=== PATIENT | female | born 1940 | race Caucasian/White ===

== ENCOUNTER 2021-02-04 12:24 | Emergency (ER) | payer OTHER ==
[~2021-02-04] VITALS: Ht 152.4 cm; Wt 54.9 kg
[2021-02-04] MEDS ORDERED: LISINOPRIL20 MG PO (12:39)
[2021-02-04 13:02] LABS: ABSOLUTE EOSINOPHILS 0.1 thou/uL (0.0-0.7); ABSOLUTE LYMPHOCYTES 1.8 thou/uL (0.8-5.3); ABSOLUTE MONOCYTES 0.5 thou/uL (0.0-1.2); BASOPHILS 0.5 %; HEMATOCRIT 30.2 % (37.0-47.0); HEMOGLOBIN 9.8 gm/dL (12.0-15.0); LYMPHOCYTES 27.7 %; MCH 27.2 pg (26.0-34.0); MCHC 32.5 g/dL (28.0-37.0); MCV 83.5 fL (80.0-100.0); MONOCYTES 7.7 %; MPV 6.6 fl. (7.2-11.1); NUCLEATED RBCS 0 /100WBC; PLATELET COUNT* 278 thou/uL (150-400); POLYS 62.1 %; RBC 3.61 mil/uL (4.20-5.00); RDW-CV 19.7 % (10.5-14.5); WBC 6.4 thou/uL (4.0-11.0)
[2021-02-04 13:13] LABS: CALCIUM 9.4 mg/dL (8.5-10.1); POTASSIUM 4.2 mmol/L (3.5-5.1)
[2021-02-04 13:24] LABS: ALBUMIN 3.4 g/dL (3.4-5.0); TOTAL BILIRUBIN 0.3 mg/dL (<0.1-1.0); TOTAL PROTEIN 6.9 g/dL (6.4-8.2)
[2021-02-04 14:13] LABS: URINE BILIRUBIN NEGATIVE (Negative); URINE BLOOD NEGATIVE (Negative); URINE CLARITY CLEAR; URINE COLOR YELLOW; URINE GLUCOSE-RANDOM NEGATIVE (Negative); URINE KETONES NEGATIVE (Negative); URINE LEUKOCYTES-REFLEX NEGATIVE (Negative); URINE NITRITE-REFLEX NEGATIVE (Negative); URINE PROTEIN NEGATIVE (Negative); URINE SPECIFIC GRAVITY 1.015 (1.005-1.030); URINE UROBILINOGEN 0.2 E.U./dl (0.2-1.0)
[2021-02-04] MEDS ORDERED: ZOFRAN ODT4 MG DISSOLVE ×2 (14:32→14:37)
--- NOTE | 2021-02-04 14:54 | EKG ---
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[id number] Requested By: Javier Jones Order Number: [id number] MD: Joe Castelan Measurements Intervals Severy Rate: 69 P: 45 [place]: 155 QRS: -22 QRSD: 96 T: 24 QT: 381 QTc: 408 Interpretive Statements Sinus rhythm Borderline left axis deviation Abnormal R-wave progression, early transition No previous ECG available for comparison Electronically Signed On 02-04-2021 14:54:03 CDT by Joe Castelan [email or web address] <ELECTRONICALLY SIGNED> By: Jeo Castelan MD, [facility] 02/04/21 1454 1246 1246 Joe Castelan MD, [facility] /EPI
[2021-02-04 15:05] VITALS: BP 146/72
== END 2021-02-04 15:07 | disposition home or self-care (01) ==
LOC: M.ERS 12:24
PROVIDERS: Emergency Medicine Emergency Medical Services
DX: R11.0 Nausea (principal); Z88.2 Allergy status to sulfonamides